=== PATIENT | female | born 1945 | race Caucasian/White ===

== ENCOUNTER 2017-02-01 09:58 | Emergency (ER) | payer OTHER, MEDICARE ==
--- NOTE | 2017-02-01 10:46 | RAD ---
RIGHT HAND 3 VIEWS: Date: 02/01/17 HISTORY: Injury. COMPARISON: None. FINDINGS: There is a fracture of the fifth metacarpal neck with lateral displacement 1/2 shaft width, as well a s foreshortening of approximately 1.0 cm. There is foreshortening of the fifth digit. Mild degenerati ve change of the thumb metacarpophalangeal joint and interphalangeal joint. IMPRESSION: Displaced and foreshortened fifth metacarpal neck fracture. POS: [facility]
== END 2017-02-01 10:47 | disposition home or self-care (01) ==
LOC: SCSER 09:58
DX: S62.336A Displaced fracture of neck of fifth metacarpal bone, right hand, initial encounter for closed fracture (principal); I10 Essential (primary) hypertension; E78.5 Hyperlipidemia, unspecified; W01.0XXA Fall on same level from slipping, tripping and stumbling without subsequent striking against object, initial encounter
CPT/HCPCS: 26605

== ENCOUNTER 2017-04-13 08:30 | Outpatient (CLI) | payer OTHER, MEDICARE | END 2017-04-13 08:31 | disposition home or self-care (01) | LOC: BICMAMMO 08:30 | PROVIDERS: ATTEND Family Medicine | DX: Z12.31 Encounter for screening mammogram for malignant neoplasm of breast (principal); Z78.0 Asymptomatic menopausal state; M85.89 Other specified disorders of bone density and structure, multiple sites | CPT/HCPCS: 77063; 77067; 77080 ==

== ENCOUNTER 2017-07-16 09:40 | Outpatient (CLI) | payer MEDICARE | END 2017-07-16 09:41 | disposition home or self-care (01) | LOC: BICMRI 09:40 | PROVIDERS: ATTEND Family Medicine | DX: M47.22 Other spondylosis with radiculopathy, cervical region (principal); M48.02 Spinal stenosis, cervical region; M43.12 Spondylolisthesis, cervical region | CPT/HCPCS: 72141 ==

== ENCOUNTER 2018-05-18 11:58 | Outpatient (CLI) | payer MEDICARE ==
--- NOTE | 2018-05-18 12:32 | MMO ---
Bilateral MAMMO Bilat Screen [facility]. CLINICAL HISTORY: Patient is 72 years old and is seen for screening. VIEWS: The views performed were: . FILMS COMPARED: The present examination has been compared to prior imaging studies performed at [facility] on 04/13/2017 and 04/14/2018, and at [facility] on 03/28/2012 and 03/24/2016. MAMMOGRAM FINDINGS: There are scattered fibroglandular densities. There are benign appearing calcifications seen in both breasts. There are no suspicious masses, suspicious calcifications, or new areas of architectural distortion. IMPRESSION: THERE IS NO MAMMOGRAPHIC EVIDENCE OF MALIGNANCY. A ROUTINE FOLLOW-UP MAMMOGRAM IN 1 YEAR IS RECOMMENDED. THE RESULTS OF THIS EXAM WERE SENT TO THE PATIENT. ACR BI-RADS Category 2 - Benign finding MAMMOGRAPHY NOTE: 1. A negative mammogram report should not delay a biopsy if a dominant of clinically suspicious mass is present. 2. Approximately 10% to 15% of breast cancers are not detected by mammography. 3. Adenosis and dense breasts may obscure an underlying neoplasm.
== END 2018-05-18 11:59 | disposition home or self-care (01) ==
LOC: BICMAMMO 11:58
PROVIDERS: ATTEND Family Medicine
DX: Z12.31 Encounter for screening mammogram for malignant neoplasm of breast (principal)
CPT/HCPCS: 77063; 77067

== ENCOUNTER 2018-06-21 11:18 | Outpatient (CLI) | payer MEDICARE ==
--- NOTE | 2018-06-21 13:23 | RAD ---
CERVICAL SPINE FOUR VIEWS: HISTORY: Spondylosis with myelopathy or radiculopathy. FINDINGS: Multilevel degenerative changes are present. There is grade 1 anterolisthesis of the C4 over C5 vert ebral bodies. No compression fracture is identified. No significant chain alignment is noted on fle xion or extension. POS: [facility]
== END 2018-06-21 11:19 | disposition home or self-care (01) ==
LOC: BICRAD 11:18
PROVIDERS: ATTEND Anesthesiology Pain Medicine
DX: M47.812 Spondylosis without myelopathy or radiculopathy, cervical region (principal); M48.02 Spinal stenosis, cervical region
CPT/HCPCS: 72050

== ENCOUNTER 2018-09-12 14:18 | Outpatient (CLI) | payer MEDICARE ==
--- NOTE | 2018-09-12 15:54 | MRI ---
MRI CERVICAL SPINE WITHOUT CONTRAST: INDICATION: Cervical spondylosis. COMPARISON: Comparison is made to MRI cervical spine 07/16/2017. FINDINGS: Moderate degenerative changes of the cervical spine again noted. Cervical vertebrae maintain height with mild wedging seen at C5 and C6. Loss of disk space is prominent at C2-3, C3-4, C5-6, and C6-7. Slight posterior listhesis at C3-4 and slight anterolisthesis at C4-5 are unchanged. Slight listhesi s at C5-6 and C6-7 unchanged. Disk bulge and spondylosis at C2-3 effaces the anterior subarachnoid space. Stable from prior exam. At C3-4, disk bulge and spondylosis efface the anterior subarachnoid space. No significant cord impi ngement. Mild bilateral foraminal narrowing due to facet and uncinate hypertrophy. Findings appear stable. At C4-5, anterolisthesis is unchanged. Disk bulge and spondylosis efface the anterior subarachnoid s pace. Mild foraminal narrowing due to facet and uncinate hypertrophy. Unchanged from prior exam. At C5-6, disk bulge and spondylosis is prominent. These changes impinge on and flatten the anterior cord producing mild cord compression. No evidence of myelomalacia. Stable from prior exam. At C6-7, disk bulge and spondylosis abut and mildly flatten the anterior cord. Foraminal stenosis, m ore prominent on the right due to hypertrophic change. No evidence of myelomalacia. IMPRESSION: Moderate cervical canal stenosis with cord compression at C5-6 and C6-7. Findings appear stable from the exam of 07/16/2017. Other degenerative changes cervical spine described above and appear stable. POS: [facility]
== END 2018-09-12 14:19 | disposition home or self-care (01) ==
LOC: BICMRI 14:18
PROVIDERS: ATTEND Family Medicine
DX: M47.812 Spondylosis without myelopathy or radiculopathy, cervical region (principal); M48.02 Spinal stenosis, cervical region; G95.20 Unspecified cord compression
CPT/HCPCS: 72141

== ENCOUNTER 2019-03-24 09:18 | Outpatient (CLI) | payer MEDICARE ==
--- NOTE | 2019-03-24 10:32 | MRI ---
MR the lumbar spine without contrast: 03/24/2019 History: Low back pain, radiculopathy COMPARISON: None. TECHNIQUE: Multiplanar multisequence MR images were obtained of lumbar spine without IV contrast FINDINGS: On the basis of 5 lumbar type vertebral bodies, conus medullaris terminates at theL1 level. Sagittal STIR imaging demonstrates mild degenerative edematous endplate change at L5-S1. Anterolisthe sis noted at L3-4 measuring 5 mm, L4-5 measuring 7 mm, and L5-S1 measuring 4 mm. T12-L1:Mild disc space narrowing and disc desiccation. Mild anterior osteophyte formation with no alisa tral canal or neural foraminal stenosis. L1-2:Mild bilateral facet hypertrophy. Disc space narrowing. No central canal or neural foraminal flavia nosis. L2-3:Mild bilateral facet hypertrophy. Mild disc space narrowing with disc desiccation. No significan t central canal or neural foraminal stenosis. L3-4:There is disc space narrowing with disc desiccation and mild disc bulge. Prominent bilateral fac et hypertrophy, right greater than left. Moderate central canal stenosis/right lateral recess stenosis. Mild bilateral neural foraminal stenosis. L4-5:There is disc space narrowing with disc desiccation. Bilateral facet hypertrophy. Mild/moderate central canal stenosis. Mild bilateral neural foraminal stenosis. L5-S1:There is disc space narrowing with vacuum disc formation and mild disc bulge. No significant ce ntral canal stenosis. Bilateral facet hypertrophy present with moderate left and mild right neural foraminal stenosis. Image retroperitoneal structures demonstrateT2 hyperintense partially imaged left renal lesions, like ly on the basis of cysts. Partially imaged T2 hyperintense lesion within the right lobe of the liver likely represents a cyst as well. Findings could be better assessed with follow-up abdominal ul trasound. IMPRESSION: Lumbar spine degenerative change as detailed above. T2 hyperintense right hepatic and left renal lesions as detailed above.
== END 2019-03-24 09:19 | disposition home or self-care (01) ==
LOC: BICMRI 09:18
PROVIDERS: ATTEND Family Medicine
DX: M51.9 Unspecified thoracic, thoracolumbar and lumbosacral intervertebral disc disorder (principal); M46.1 Sacroiliitis, not elsewhere classified; M47.816 Spondylosis without myelopathy or radiculopathy, lumbar region; N28.89 Other specified disorders of kidney and ureter; K76.9 Liver disease, unspecified
CPT/HCPCS: 72148

== ENCOUNTER 2019-04-04 07:40 | Outpatient (CLI) | payer MEDICARE, OTHER ==
--- NOTE | 2019-04-04 10:09 | ULT ---
ABDOMINAL ULTRASOUND COMPLETE: HISTORY: Followup liver and renal masses from prior MRI, 03/24/2019. FINDINGS: Liver echotexture is slightly coarse. In the right lobe of the liver in fairly close proximity to th e right kidney there is a somewhat heterogeneous focus of slight increased echogenicity measuring 1.4 x 2.4 x 2 cm which is in the region of one of the areas of concern on the prior MRI. This is defini tely not a benign cyst. Conceivably it could represent a benign hemangioma. Followup abdomen CT sca n with liver mass-hemangioma protocol with and without IV contrast suggested for further assessment o f this. The gallbladder is unremarkable without evidence of gallstones, wall thickening, edema, or p ericholecystic fluid. Common bile duct 0.6 cm. Visualized pancreas, IVC, aorta, and spleen are unre markable. There is no renal hydronephrosis. Evidence for 2 left renal cysts. The largest measures 3.1 x 3.3 x 3.3 cm in size. No abscess or abnormal fluid collection. IMPRESSION: 1. Two left renal cysts. 2. Heterogeneous slightly hyperechoic mass involving the edge of the right lobe of the liver corresp onding to the area of abnormality seen on the prior MRI study. This is definitely not a benign cyst but could conceivably represent a hemangioma. Followup CT scan with and without contrast with liver mass-hemangioma protocol recommended for further assessment. POS: [facility]
== END 2019-04-04 07:41 | disposition home or self-care (01) ==
LOC: SCSULT 07:40
PROVIDERS: ATTEND Family Medicine
DX: K76.89 Other specified diseases of liver (principal); N28.1 Cyst of kidney, acquired; R16.0 Hepatomegaly, not elsewhere classified
CPT/HCPCS: 93975

== ENCOUNTER 2019-04-11 07:27 | Outpatient (CLI) | payer MEDICARE ==
--- NOTE | 2019-04-11 09:28 | CT ---
CT ABDOMEN WITH AND WITHOUT IV CONTRAST: Date: 04/11/2019 HISTORY: Liver mass. FINDINGS: A few tiny peripheral nodules are seen in the left lower lobe measuring up to 4.0 mm. A tiny peripher al nodule is also seen in the right lower lobe. There is a small hiatal hernia. No calcified gallston es are seen. The spleen, pancreas, adrenal glands, and right kidney are normal. There is an approximately 3.0 cm mass in the medial aspect of the inferior right liver lobe with hannah pheral nodular enhancement and centripetal filling, consistent with a benign hemangioma. No abnormal biliary ductal dilatation is seen. There is a 3.4 cm exophytic cyst arising from the left kidney and a smaller parapelvic cyst in the le ft kidney. No calculi seen in the kidneys or the visualized portions of the ureters. No hydroureteron ephrosis noted on either side. No free air, free fluid, or lymphadenopathy is seen in the abdomen. The small bowel loops are not abn ormally dilated. A normal appearing appendix is present. There are vascular calcifications without ev idence of aneurysmal dilatation of the abdominal aorta. There are degenerative changes in the spine. There is minimal anterolisthesis of L4 over L5 vertebra. IMPRESSION: 1. Tiny lung nodules. Dedicated CT scan of the chest would be helpful. 2. Small hiatal hernia. 3. Liver hemangioma. 4. Left renal cysts. POS: [facility]
[2019-04-11] MEDS ORDERED: Iopamidol-370 76% 500 ML 1 ML ONE (13:51)
== END 2019-04-11 07:28 | disposition home or self-care (01) ==
LOC: BICCT 07:27
PROVIDERS: ATTEND Family Medicine
DX: R16.0 Hepatomegaly, not elsewhere classified (principal); D18.03 Hemangioma of intra-abdominal structures; R91.8 Other nonspecific abnormal finding of lung field; K44.9 Diaphragmatic hernia without obstruction or gangrene; N28.1 Cyst of kidney, acquired
CPT/HCPCS: 74170; 82565; Q9967

== ENCOUNTER 2019-06-14 15:14 | Outpatient (CLI) | payer MEDICARE ==
--- NOTE | 2019-06-14 16:16 | MMO ---
Bilateral MAMMO Bilat Screen [facility]. CLINICAL HISTORY: Patient is 73 years old and is seen for screening. The patient has the following family history of breast cancer: paternal grandmother, malignant (generic). The patient has no personal history of cancer. VIEWS: The views performed were: bilateral craniocaudal with tomosynthesis and bilateral mediolateral oblique with tomosynthesis. FILMS COMPARED: The present examination has been compared to prior imaging studies performed at [facility] on 04/13/2017 and 05/18/2018, and at [facility] on 03/28/2012 and 03/24/2016. This study has been interpreted with the assistance of computer-aided detection. MAMMOGRAM FINDINGS: There are scattered fibroglandular densities. There are no suspicious masses, suspicious calcifications, or new areas of architectural distortion. IMPRESSION: THERE IS NO MAMMOGRAPHIC EVIDENCE OF MALIGNANCY. A ROUTINE FOLLOW-UP MAMMOGRAM IN 1 YEAR IS RECOMMENDED. THE RESULTS OF THIS EXAM WERE SENT TO THE PATIENT. ACR BI-RADS Category 1 - Negative MAMMOGRAPHY NOTE: 1. A negative mammogram report should not delay a biopsy if a dominant of clinically suspicious mass is present. 2. Approximately 10% to 15% of breast cancers are not detected by mammography. 3. Adenosis and dense breasts may obscure an underlying neoplasm. Reported by: JOSÉ MANUEL KNOX MD Electonically Signed: [id number]
--- NOTE | 2019-06-14 16:16 | BD ---
Exam: DEXA Bone Density 06/14/19 INDICATION: Postmenopausal screening. Lumbar Spine: BMD (g/cm2) T-SCORE L1 0.655 -3.0 L2 0.606 -3.8 L3 0.683 -3.6 L4 0.730 -3.0 L1-L4 0.672 -3.4 Femoral Neck: 0.602 -2.2 Total Femur: 0.807 -1.1 1. Impression:Bone mineral density of the lumbar spine indicates osteoporosis. 2. Bone mineral density of the femoral neck indicates osteopenia. POS: [facility]
== END 2019-06-14 15:15 | disposition home or self-care (01) ==
LOC: BICMAMMO 15:14
PROVIDERS: ATTEND Family Medicine
DX: Z12.31 Encounter for screening mammogram for malignant neoplasm of breast (principal); Z13.820 Encounter for screening for osteoporosis; Z78.0 Asymptomatic menopausal state; Z80.3 Family history of malignant neoplasm of breast; M81.0 Age-related osteoporosis without current pathological fracture; M85.859 Other specified disorders of bone density and structure, unspecified thigh
CPT/HCPCS: 77063; 77067; 77080

== ENCOUNTER 2019-08-30 08:40 | Outpatient (CLI) | payer MEDICARE, OTHER ==
--- NOTE | 2019-08-30 13:43 | NM ---
Nuclear medicine parathyroid SPECT and scintigraphy: DATE: 08/30/2019 HISTORY: 73-year-old Female with hyperparathyroidism TECHNIQUE: IV injection of 27.5 mCi Tc99m sestamibi. 3 view scintigraphic images of upper chest, neck, and head, immediately, at one hour, and 2 hours. SPECT in 3 planes from upper chest to skull base. Noncontrast CT from upper chest to skull base. SPECT-CT fusion. FINDINGS: There is a right paratracheal, approximately 0.7 x 0.5 cm soft tissue density nodule with no intrinsi c iodine (not hyperdense on the noncontrast CT) abutting the posterior edge of the lower pole of the right lobe of the thyroid gland (CT axial image 108 of 178, series 3). IMPRESSION: Candidate for possible small parathyroid adenoma abutting lower pole of right lobe of thyroid gland. Recommend dedicated multiphase CT neck with and without contrast, parathyroid protocol.
== END 2019-08-30 08:41 | disposition home or self-care (01) ==
LOC: NM 08:40
PROVIDERS: ATTEND Family Medicine
DX: E21.0 Primary hyperparathyroidism (principal)
CPT/HCPCS: 78072; A9500

== ENCOUNTER 2019-09-08 05:13 | Outpatient (CLI) | payer MEDICARE, OTHER ==
[2019-09-08 09:53] LABS: Hemoglobin 12.6 g/dL (12.0-16.0)
[2019-09-08 10:40] LABS: Anion Gap 12 mmol/L (10-20); BUN (Urea Nitrogen) 20 mg/dL (9.8-20.1); Calc. Creatinine Clearance 0 mL/min (70-130); Calcium 9.6 mg/dL (7.8-10.44); Carbon Dioxide 26 mmol/L (23-31); Chloride 107 mmol/L (98-107); Estimated GFR-MDRD 78; Glucose 70 mg/dL (83-110); Potassium 4.7 mmol/L (3.5-5.1); Sodium 140 mmol/L (136-145)
[2019-09-08 17:20] LABS: SARS-CoV-2 MS2 Positive; SARS-CoV-2 N Gene Negative; SARS-CoV-2 S Gene Negative; SARS-CoV-2 by NAA Not Detected (NotDetected); SARS-CoV-2 orf1ab Negative
== END 2019-09-08 05:14 | disposition home or self-care (01) ==
LOC: LABBT 05:13
PROVIDERS: ATTEND Otolaryngology Plastic Surgery within the Head & Neck
DX: Z01.818 Encounter for other preprocedural examination (principal); Z11.59 Encounter for screening for other viral diseases; E83.52 Hypercalcemia; E34.8 Other specified endocrine disorders; Z87.39 Personal history of other diseases of the musculoskeletal system and connective tissue
CPT/HCPCS: 80048; 85014; 85018; U0003; 87635

== ENCOUNTER 2019-09-13 08:17 | Day surgery (SDC) | payer MEDICARE, OTHER ==
[2019-09-06 16:13] VITALS: BMI 23.5
[2019-09-13] MEDS ORDERED: Fentanyl 100 MCG/2 ML VIAL ONE (09:57)
[2019-09-13] MEDS ORDERED: Lidocaine 1% w/Epinephrine 1:100K 20 ML VIAL ONE (10:00)
[2019-09-13] MEDS ORDERED: PHENYLEPHRINE-NS 100 MCG/ML 10 ML SYRINGE ONE (10:30)
[2019-09-13] MEDS ORDERED: Dexamethasone 20 MG/5 ML VIAL ONE (10:30)
[2019-09-13] MEDS ORDERED: Ondansetron PF 4 MG/2 ML Vial ONE ×2 (10:30)
[2019-09-13] MEDS ORDERED: PROPOFOL 200 MG/20 ML VIAL ONE (10:30)
[2019-09-13] MEDS ORDERED: Lidocaine 1% PF 5 ML VIAL ONE (10:30)
[2019-09-13] MEDS ORDERED: Succinylcholine Chloride 20 MG/ML 10 ml SYRINGE FS ONE (10:30)
[2019-09-13] MEDS ORDERED: EPHEDRINE 25 MG/5 ML SYRINGE ONE (10:30)
[2019-09-13] MEDS ORDERED: HYDROcodone/Acetaminophen 5/325 mg Tablet ONE (14:30)
--- NOTE | 2019-09-14 18:04 | OP ---
DATE OF PROCEDURE: 09/13/2019 PREOPERATIVE DIAGNOSES: 1. Hyperparathyroidism. 2. Parathyroid adenoma. 3. Hypercalcemia. POSTOPERATIVE DIAGNOSES: 1. Hyperparathyroidism. 2. Parathyroid adenoma. 3. Hypercalcemia. PROCEDURE PERFORMED: Right parathyroidectomy. ESTIMATED BLOOD LOSS: Less than 5 mL. COMPLICATIONS: None. ANESTHESIA: GETA with laryngeal nerve monitoring. DESCRIPTION OF PROCEDURE: The patient was taken to operating room and placed supine on the table. General endotracheal anesthesia was obtained by the anesthesia staff. Direct laryngoscopy confirmed the placement of the laryngeal electrodes between the vocal cords bilaterally. Following this, the patient was prepped and draped in standard surgical fashion. The patient had a previous neck incision from an ACDFS procedure. An incision was made overlying the thyroid gland approximately 3 cm in length and was carried through skin and subcutaneous tissue and platysmal layer. Subplatysmal flaps were elevated superiorly and inferiorly. The midline strap muscles were in the midline and the thyroid gland was immediately identified. The strap muscles were retracted laterally and a Green elevator was used to retract the thyroid lobe medially. At the inferior pole of the right thyroid gland, a large parathyroid adenoma approximately 2 cm x 1 cm was identified. This parathyroid adenoma was sent for pathological analysis and was confirmed to be hypercellular enlarged adenoma. This adenoma was much larger than what was identified on her preoperative imaging studies, therefore, the diagnosis of parathyroid adenoma was confirmed. Following this, the wound was irrigated. Strap muscles were closed using 4-0 Monocryl stitches, and the subplatysmal and subcuticular layers were closed using 4-0 Monocryl. The wound was closed using Dermabond. The patient tolerated the procedure well. The intraoperative laryngeal nerve monitor was then turned off at the end of the procedure. Job ID: [id number]
== END 2019-09-13 15:25 | disposition home or self-care (01) ==
LOC: SDC 08:17
PROVIDERS: ATTEND Otolaryngology Plastic Surgery within the Head & Neck
PROC: 0GBN0ZZ Excision of Right Inferior Parathyroid Gland, Open Approach (ICD-10-PCS; principal; 2019-09-13)
DX: D35.1 Benign neoplasm of parathyroid gland (principal); E83.52 Hypercalcemia; E21.3 Hyperparathyroidism, unspecified; E78.5 Hyperlipidemia, unspecified; I10 Essential (primary) hypertension; M81.0 Age-related osteoporosis without current pathological fracture; Z79.83 Long term (current) use of bisphosphonates; Z79.899 Other long term (current) drug therapy
CPT/HCPCS: 88305; 88331; J1100; J2405; J2704; J3010

== ENCOUNTER 2020-06-19 08:34 | Outpatient (CLI) | payer MEDICARE, OTHER | END 2020-06-19 08:35 | disposition home or self-care (01) | LOC: BICMAMMO 08:34 | PROVIDERS: ATTEND Family Medicine | DX: Z12.31 Encounter for screening mammogram for malignant neoplasm of breast (principal); Z80.3 Family history of malignant neoplasm of breast | CPT/HCPCS: 77063; 77067 ==

== ENCOUNTER 2021-07-08 08:34 | Outpatient (CLI) | payer MEDICARE | END 2021-07-08 08:35 | disposition home or self-care (01) | LOC: BICMAMMO 08:34 | PROVIDERS: ATTEND Family Medicine | DX: Z12.31 Encounter for screening mammogram for malignant neoplasm of breast (principal); Z78.0 Asymptomatic menopausal state; Z80.3 Family history of malignant neoplasm of breast; M85.80 Other specified disorders of bone density and structure, unspecified site | CPT/HCPCS: 77063; 77067; 77080 ==

== ENCOUNTER 2022-03-18 07:48 | Outpatient (CLI) | payer MEDICARE | END 2022-03-18 07:49 | disposition home or self-care (01) | LOC: TBSIIMAG 07:48 | PROVIDERS: ATTEND Family Medicine | DX: M47.22 Other spondylosis with radiculopathy, cervical region (principal); M47.23 Other spondylosis with radiculopathy, cervicothoracic region; Z98.890 Other specified postprocedural states | CPT/HCPCS: 72141 ==

== ENCOUNTER 2022-04-22 13:15 | Outpatient (CLI) | payer MEDICARE | END 2022-04-22 13:16 | disposition home or self-care (01) | LOC: SCSRAD 13:15 | PROVIDERS: ATTEND Neurological Surgery | DX: M48.02 Spinal stenosis, cervical region (principal); M50.20 Other cervical disc displacement, unspecified cervical region; G95.9 Disease of spinal cord, unspecified; M47.812 Spondylosis without myelopathy or radiculopathy, cervical region; Z98.1 Arthrodesis status | CPT/HCPCS: 72040 ==

== ENCOUNTER 2022-11-16 14:18 | Outpatient (CLI) | payer MEDICARE | END 2022-11-16 14:19 | disposition home or self-care (01) | LOC: SCSMRI 14:18 | PROVIDERS: ATTEND Nurse Practitioner Family | DX: M48.062 Spinal stenosis, lumbar region with neurogenic claudication (principal); M47.816 Spondylosis without myelopathy or radiculopathy, lumbar region; M47.817 Spondylosis without myelopathy or radiculopathy, lumbosacral region; M47.815 Spondylosis without myelopathy or radiculopathy, thoracolumbar region | CPT/HCPCS: 72148 ==

== ENCOUNTER 2023-08-10 12:58 | Outpatient (CLI) | payer MEDICARE | END 2023-08-10 12:59 | disposition home or self-care (01) | LOC: BICMAMMO 12:58 | PROVIDERS: ATTEND Family Medicine | DX: Z13.820 Encounter for screening for osteoporosis (principal); M85.89 Other specified disorders of bone density and structure, multiple sites; Z78.0 Asymptomatic menopausal state | CPT/HCPCS: 77080 ==